=== PATIENT | female | born 1980 | race Caucasian/White ===

== ENCOUNTER 2017-10-29 19:49 | Emergency (ER) | payer BC, MEDICAID ==
[2017-10-29 21:35] VITALS: BP 139/70
--- NOTE | 2017-10-29 21:36 | UC ---
HPI BURN - HPI Summary HPI Summary: 37 year old male presents with complains of burn on her left wrist. - History of Current Complaint Stated Complaint: BURN ON LEFT ARM Time Seen by Provider: 10/29/17 21:35 Hx Obtained From: Patient Occurred: Hours Ago Onset Severity: Moderate Current Severity: Moderate - Allergy/Home Medications Allergies/Adverse Reactions: Allergies Allergy/AdvReac Type Severity Reaction Status Date / Time No Known Allergies Allergy Verified 10/29/17 21:35 Home Medications: Home Medications Oral Control 1 tab PO DAILY 10/29/17 [History Confirmed 10/29/17] PMH/Surg Hx/FS Hx/Imm Hx Previously Healthy: Yes - Surgical History Surgical History: None - Social History Alcohol Use: Weekly Substance Use Type: None Smoking Status (MU): Never Smoked Tobacco Review of Systems Constitutional: Negative Skin: Other - left wrist burn Eyes: Negative ENT: Negative Respiratory: Negative Cardiovascular: Negative Gastrointestinal: Negative Genitourinary: Negative Motor: Negative Neurovascular: Negative Musculoskeletal: Negative Neurological: Negative Psychological: Negative All Other Systems Reviewed And Are Negative: Yes Physical Exam Triage Information Reviewed: Yes Vital Signs: Initial Vital Signs Temp 36.8 C 10/29/17 21:32 Pulse 81 10/29/17 21:32 Resp 14 10/29/17 21:32 BP 139/70 10/29/17 21:32 Vital Signs Reviewed: Yes Eye Exam: Normal ENT Exam: Normal Dental Exam: Normal Neck exam: Normal Neck: Positive: 1 Respiratory Exam: Normal Cardiovascular Exam: Normal Abdominal Exam: Normal Musculoskeletal Exam: Normal Neurological Exam: Normal Psychological Exam: Normal Skin: Positive: Other - left wrist burn Burn Calculation - [place] Formula for Fluid Resuscitation Weight: 65.771 kg 24 -Hour Fluid Replacement: 0.0 Course/Dx Burn - Diagnoses Clinic Provider Diagnoses: left wrist 2nd degree burn Discharge - Discharge Plan Condition: Stable Disposition: HOME Prescriptions: LoraTADine TAB(NF) [Claritin 10 MG TAB(NF)] 10 mg PO DAILY #30 tab predniSONE TAB* [Deltasone TAB*] 40 mg PO DAILY #10 tab Silver Sulfadiazine 1%* [SILVadine 1%*] 1 applic TOPICAL BID #2 jar Patient Education Materials: Superficial Burn (ED) Referrals: Vito Cehung MD [Medical Doctor] -
[2017-10-29] MEDS ORDERED: Silver Sulfadiazine 1%* 20 GM TOPICAL ONE (21:38)
[2017-10-29] MEDS ORDERED: predniSONE TAB* 20 MG PO ONE (21:39)
== END 2017-10-29 22:19 | disposition home or self-care (01) ==
LOC: UCCORT 19:49
DX: T23.272A Burn of second degree of left wrist, initial encounter (principal); T31.0 Burns involving less than 10% of body surface; X08.8XXA Exposure to other specified smoke, fire and flames, initial encounter; Y93.9 Activity, unspecified; Y92.9 Unspecified place or not applicable; Y99.9 Unspecified external cause status
CPT/HCPCS: 16020; 99202; A9270-GY; G0463; J7512